=== PATIENT | male | born 1960 | race Caucasian/White ===

== ENCOUNTER 2019-12-10 12:04 | Outpatient (CLI) | payer MEDICARE ==
--- NOTE | 2019-12-10 12:39 | RAD ---
EXAM: XR Lumbar Spine 2 Or 3 View PROVIDED CLINICAL HISTORY: Back pain secondary to injury. Patient fell from chair onto buttocks. COMPARISON: None FINDINGS: 5 nonrib-bearing lumbar-type vertebral bodies are seen. The vertebral body heights are within normal limits. Scattered osteophytes are seen throughout the lower thoracic as well as involving the lumbar spine. No fracture or subluxation is seen. Vascular calcifications are seen in the abdominal a amanda and involving the iliac arteries. IMPRESSION: Degenerative changes lumbar spine without fracture or subluxation.
--- NOTE | 2019-12-10 13:08 | RAD ---
SACRUM AND COCCYX 2 VIEWS STANDARD: HISTORY: Back pain. COMPARISON: None. FINDINGS: The sacral struts are intact. 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 No displaced sacral fracture appreciated. Obturator rings are intact. Mild degenerative disease of the pubic symphysis. Moderate femoral vascular calcifications. IMPRESSION: Degenerative changes. No acute abnormality. POS: HOME
== END 2019-12-10 12:05 | disposition home or self-care (01) ==
LOC: NAV RAD 12:04
PROVIDERS: ATTEND Internal Medicine
DX: S39.92XA Unspecified injury of lower back, initial encounter (principal); M47.816 Spondylosis without myelopathy or radiculopathy, lumbar region; M47.898 Other spondylosis, sacral and sacrococcygeal region
CPT/HCPCS: 72100; 72220